=== PATIENT | male | born 1945 | race Caucasian/White ===

== ENCOUNTER 2019-10-29 17:10 | Emergency (ER) | payer OTHER ==
--- NOTE | 2019-10-29 17:41 | ER Document Report ---
ED Medical Screen (RME) - General Chief Complaint: Urinary Problem Stated Complaint: PAINFUL URINATION,BLOOD IN URINE Time Seen by Provider: 10/29/19 17:35 Mode of Arrival: Ambulatory Information source: Patient Notes: 74-year-old male presents emergency department with complaints of hematuria since last night. Patient is taking anticoagulant for atrial fib. He reports that before Carlos he was having a urinary tract infection. His doctor put him on Cipro and then changed it to Macrobid. He denies pain with void. Reports he is voiding okay just having a lot of blood noted. Patient has history of prostate issues in the past. Denies fever vomiting diarrhea. Denies flank pain. I have greeted and performed a rapid initial assessment of this patient. A comprehensive ED assessment and evaluation of the patient, analysis of test results and completion of the medical decision making process will be conducted by additional ED providers. Physical Exam - Vital signs Vitals: Temp Pulse Resp BP Pulse Ox 98.7 F 106 H 18 151/92 H 96 10/29/19 17:27 10/29/19 17:27 10/29/19 17:27 10/29/19 17:27 10/29/19 17:27 Course - Vital Signs Vital signs: Temp Pulse Resp BP Pulse Ox 98.7 F 106 H 18 151/92 H 96 10/29/19 17:27 10/29/19 17:27 10/29/19 17:27 10/29/19 17:27 10/29/19 17:27
[2019-10-29 18:36] LABS: ABSOLUTE BASOPHILS # (AUTO) 0.1 10^3/uL (0.0-0.2); ABSOLUTE EOSINOPHILS # (AUTO) 0.3 10^3/uL (0.0-0.6); ABSOLUTE LYMPHOCYTES (AUTO) 2.4 10^3/uL (0.5-4.7); ABSOLUTE MONOCYTES (AUTO) 0.8 10^3/uL (0.1-1.4); ABSOLUTE NEUT (AUTO) 7.5 10^3/uL (1.7-8.2); BASOPHILS % (AUTO) 0.7 % (0-2); EOSINOPHILS % (AUTO) 3.1 % (0-6); HEMOGLOBIN 14.4 g/dL (13.5-17.0); LYMPHOCYTES % (AUTO) 21.3 % (13-45); MEAN CORPUSCULAR HEMOGLOBIN 30.2 pg (27.0-33.4); MEAN CORPUSCULAR HGB CONC 33.4 g/dL (32.0-36.0); MEAN CORPUSCULAR VOLUME 90 fl (80-97); MONOCYTES % (AUTO) 7.4 % (3-13); PLATELET COUNT 209 10^3/uL (150-450); RED BLOOD COUNT 4.76 10^6/uL (4.35-5.55); RED CELL DISTRIBUTION WIDTH 14.1 % (11.5-14.0); SEGMENTED NEUTROPHILS % (AUTO) 67.5 % (42-78); TOTAL CELLS COUNTED % (AUTO) 100 %; WHITE BLOOD COUNT 11.1 10^3/uL (4.0-10.5)
[2019-10-29 18:56] LABS: ALBUMIN 3.6 g/dL (3.5-5.0); ALKALINE PHOSPHATASE 70 U/L (38-126); ANION GAP 12 (5-19); APPEARANCE,URINE CLEAR; ASPARTATE AMINO TRANSFERASE 22 U/L (17-59); BILIRUBIN,DIRECT 0.2 mg/dL (0.0-0.4); BILIRUBIN,TOTAL 0.3 mg/dL (0.2-1.3); BILIRUBIN,URINE NEGATIVE (NEGATIVE); BLOOD UREA NITROGEN 22 mg/dL (7-20); CALCIUM 9.5 mg/dL (8.4-10.2); CARBON DIOXIDE 25 mmol/L (22-30); CHLORIDE 103 mmol/L (98-107); GLUCOSE 109 mg/dL (75-110); GLUCOSE, URINE NEGATIVE (NEGATIVE); KETONES,URINE NEGATIVE (NEGATIVE); LEUKOCYTE ESTERASE,URINE NEGATIVE (NEGATIVE); NITRITE,URINE NEGATIVE (NEGATIVE); POTASSIUM 4.5 mmol/L (3.6-5.0); PROTEIN,URINE 100 mg/dL (NEGATIVE); TOTAL PROTEIN 6.8 g/dL (6.3-8.2); URINE SPECIFIC GRAVITY 1.011; UROBILINOGEN,URINE NEGATIVE mg/dL (<2.0)
[2019-10-29 18:59] LABS: COLOR,URINE RED
--- NOTE | 2019-10-29 20:03 | ER Document Report ---
ED General - General Chief Complaint: Urinary Problem Stated Complaint: PAINFUL URINATION,BLOOD IN URINE Time Seen by Provider: 10/29/19 17:35 Primary Care Provider: MORGAN,CAREY [Primary Care Provider] - Follow up as needed Mode of Arrival: Ambulatory - HPI Context: Patient presents with hematuria that started last night stopped and started again so he was concerned and came to the emergency department. He is on Eliquis for atrial fibrillation. Denies any dizziness chest pain shortness of breath recent cough congestion. He has been on Macrobid and is on day 6 of 7 by his primary care physician for urinary tract infection at this time. - Related Data Allergies/Adverse Reactions: No Known Allergies Allergy (Unverified 10/29/19 17:41) Past Medical History - General Information source: Patient - Social History Smoking Status: Unknown if Ever Smoked Family History: Reviewed & Not Pertinent Patient has suicidal ideation: No Patient has homicidal ideation: No Review of Systems - Review of Systems Constitutional: No symptoms reported EENT: No symptoms reported Cardiovascular: No symptoms reported Respiratory: No symptoms reported Gastrointestinal: No symptoms reported Genitourinary: See HPI, Hematuria Male Genitourinary: No symptoms reported Musculoskeletal: No symptoms reported Skin: No symptoms reported Hematologic/Lymphatic: No symptoms reported Neurological/Psychological: No symptoms reported Physical Exam - Vital signs Vitals: Temp Pulse Resp BP Pulse Ox 98.7 F 106 H 18 151/92 H 96 10/29/19 17:27 10/29/19 17:27 10/29/19 17:27 10/29/19 17:27 10/29/19 17:27 - General General appearance: Appears well, Alert - HEENT Head: Normocephalic, Atraumatic - Respiratory Respiratory status: No respiratory distress Chest status: Nontender Breath sounds: Normal - Cardiovascular Rhythm: Irregularly irregular Heart sounds: Normal auscultation - Abdominal Inspection: Normal Distension: No distension Bowel sounds: Normal Course - Re-evaluation Re-evalutation: 10/29/19 20:05 Well-appearing patient with normal hemoglobin and hematocrit. Patient is on Eliquis for atrial fibrillation. Not have any problems voiding. I discussed if he continues to have bleeding in the next 24 hours he needs to be reevaluated and labs drawn. Sooner in the emergency department if he develops any dizziness or shortness of breath. Patient understands and verbally agrees with plan. - Vital Signs Vital signs: Temp Pulse Resp BP Pulse Ox 98.2 F 81 18 146/83 H 95 10/29/19 20:14 10/29/19 20:14 10/29/19 20:14 10/29/19 20:14 10/29/19 20:14 - Laboratory Result Diagrams: 10/29/19 18:24 10/29/19 18:24 Laboratory results interpreted by me: 10/29/19 10/29/19 10/29/19 18:24 18:24 18:24 WBC 11.1 H RDW 14.1 H BUN 22 H Creatinine 1.53 H Est GFR ( Amer) 54 L Est GFR (MDRD) Non-Af 45 L Urine Protein 100 H Urine Blood LARGE H Discharge - Discharge Clinical Impression: Hematuria Qualifiers: Hematuria type: unspecified type Qualified Code(s): R31.9 - Hematuria, unspecified Condition: Good Disposition: HOME, SELF-CARE Instructions: Hematuria ([facility]) Additional Instructions: Per discussion, please follow-up with urologist in [place] in the next 24 hours if your bleeding continues. Referrals: [facility] [Primary [facility]] - Follow up as needed
[2019-10-29 20:15] VITALS: BP 146/83
== END 2019-10-29 20:13 | disposition home or self-care (01) ==
LOC: ER 17:10
DX: R31.9 Hematuria, unspecified (principal); R30.9 Painful micturition, unspecified; I48.91 Unspecified atrial fibrillation; Z79.01 Long term (current) use of anticoagulants
CPT/HCPCS: 36415; 80053; 81001; 85025; 99283